=== PATIENT | female | born 1990 | race Two or more races ===

== ENCOUNTER → 2024-06-20 11:05 | Outpatient (CLI) | payer OTHER | END | disposition home or self-care (01) | LOC: PRENATAL 11:05 | PROVIDERS: ATTEND Obstetrics & Gynecology Maternal & Fetal Medicine | DX: O44.00 Complete placenta previa NOS or without hemorrhage, unspecified trimester (principal); Z3A.20 20 weeks gestation of pregnancy ==

== ENCOUNTER 2024-09-14 09:01 | Outpatient (CLI) | payer OTHER | END 2024-09-14 09:02 | disposition home or self-care (01) | LOC: PRENATAL 09:01 | PROVIDERS: ATTEND Obstetrics & Gynecology Maternal & Fetal Medicine | DX: O26.849 Uterine size-date discrepancy, unspecified trimester (principal); O36.8199 Decreased fetal movements, unspecified trimester, other fetus; Z3A.32 32 weeks gestation of pregnancy ==

== ENCOUNTER 2024-10-28 12:59 | Outpatient (CLI) | payer OTHER ==
[~2024-10-28] VITALS: Ht 160 cm; Wt 84.4 kg
[2024-10-28 13:07] VITALS: BP 117/74
[2024-10-28] MEDS ORDERED: PRENATAL TABLE1 EAC4 PO (13:31)
[2024-10-28] MEDS ORDERED: PEPCID20 MG PO (13:32)
[2024-10-28 13:41] LABS: URINE APPEARANCE Clear; URINE BILIRRUBIN Small (NEGATIVE); URINE BLOOD Large; URINE COLOR Dark Yellow; URINE GLUCOSE Negative (NEGATIVE); URINE KETONE 15 (NEGATIVE); URINE LEUKOCYTE Trace; URINE NITRATE Negative; URINE PROTEIN 30 (NEGATIVE)
[2024-10-28 13:44] LABS: HEMATOCRIT 35.4 % (36.0-45.00); MEAN CELL VOLUME 84.5 fL (80.00-100.00); MEAN CORPUSCULAR HEMOGLOBIN 28.6 pg (27.00-32.0); MEAN CORPUSCULAR HGB CONC 33.9 g/dl (32.0-36.0); PLATELET COUNT 202 K/uL (150-450); RED BLOOD COUNT 4.19 M/uL (4.00-6.00); RED CELL DISTRIBUTION WIDTH 14.5 % (11.5-14.5); URINE BACTERIA 588.6 uL (0.0-1933); URINE EPITHELIAL CELLS 12.6 uL (0.0-38.8); URINE RBC 552.2 uL (0.0-20.8); URINE WBC 37.9 uL (0.0-23.2)
[2024-10-28] MEDS ORDERED: RINGERS SOLUTION,LACTATED 1,000 ML IV SCH (14:00)
[2024-10-28 14:04] LABS: INR 0.96; PARTIAL THROMBOPLASTIN TIME 25.6 SECONDS (22.0-34.0); PROTHROMBIN TIME 10.5 SECONDS (9.0-11.5)
[2024-10-28 15:09] VITALS: BP 129/68
[2024-10-28 15:13] LABS: ALBUMIN 2.9 gm/dL (3.4-5.0); BILIRUBIN TOTAL 0.68 mg/dL (0.3-1.2); CREATININE SERUM 0.73 mg/dL (0.55-1.02); GFR 91.81; GLOBULINA 3.3 G/DL (2.4-3.5); POTASSIUM 3.81 mEq/L (3.5-5.1); TOTAL PROTEIN 6.2 gm/dL (6.4-8.2)
[2024-10-28 20:00] VITALS: BP 123/68
[2024-10-28 23:20] VITALS: BP 110/71
[2024-10-29 04:06] VITALS: BP 121/71
[2024-10-29 07:18] VITALS: BP 124/79
[2024-10-29 11:10] VITALS: BP 128/65
[2024-10-29] MEDS ORDERED: ACETAMINOPHEN 500 MG GEL..CAP PO PRN ×2 (12:15→13:30)
== END 2024-10-29 13:27 | disposition home or self-care (01) ==
LOC: LDR 12:59 → OBS/DEL 12:59 → SURG 12:59 → LDR 10-29 09:24 → OB/GYN 10-29 09:24 → OBS/DEL 10-29 13:27 → OB/GYN 10-29 13:27 → SURG 11-09 13:15 → EDSTATUS 11-09 13:15
PROVIDERS: ATTEND Obstetrics & Gynecology
DX: O26.893 Other specified pregnancy related conditions, third trimester (principal); O47.1 False labor at or after 37 completed weeks of gestation; Z3A.38 38 weeks gestation of pregnancy

== ENCOUNTER 2024-11-02 15:53 | Inpatient (IN) | payer OTHER ==
[~2024-11-02] VITALS: Ht 160 cm; Wt 84.4 kg
[~2024-11-02 15:53] MED LIST: PEPCID20 MG PO; PRENATAL TABLE1 EAC4 PO
[2024-11-02 16:17] VITALS: BP 124/66
[2024-11-02 16:59] LABS: HEMATOCRIT 36.9 % (36.0-45.00); HEMOGLOBIN 12.4 g/dL (12.0-15.00); MEAN CELL VOLUME 85.2 fL (80.00-100.00); MEAN CORPUSCULAR HEMOGLOBIN 28.5 pg (27.00-32.0); MEAN CORPUSCULAR HGB CONC 33.5 g/dl (32.0-36.0); PLATELET COUNT 217 K/uL (150-450); RED BLOOD COUNT 4.34 M/uL (4.00-6.00); RED CELL DISTRIBUTION WIDTH 14.5 % (11.5-14.5)
[2024-11-02 17:07] LABS: PH,URINE 5.5 (5.0-8.0); URINE APPEARANCE Clear; URINE BILIRRUBIN Negative (NEGATIVE); URINE BLOOD Negative; URINE COLOR Yellow; URINE GLUCOSE Negative (NEGATIVE); URINE KETONE Negative (NEGATIVE); URINE LEUKOCYTE Negative; URINE NITRATE Negative; URINE PROTEIN Negative (NEGATIVE)
[2024-11-02 17:11] LABS: URINE BACTERIA 834.6 uL (0.0-1933); URINE EPITHELIAL CELLS 12.8 uL (0.0-38.8); URINE RBC 13.5 uL (0.0-20.8); URINE WBC 17.4 uL (0.0-23.2)
[2024-11-02 17:25] LABS: URINE CAST 0.44 uL (0.0-1.40)
[2024-11-02 17:28] LABS: ALBUMIN 2.9 gm/dL (3.4-5.0); BILIRUBIN TOTAL 0.5 mg/dL (0.3-1.2); CALCIUM 8.7 mg/dL (8.5-10.1); CREATININE SERUM 0.72 mg/dL (0.55-1.02); GFR 93.29; GLOBULINA 3.4 G/DL (2.4-3.5); INR 0.99; PARTIAL THROMBOPLASTIN TIME 25.6 SECONDS (22.0-34.0); POTASSIUM 4.01 mEq/L (3.5-5.1); PROTHROMBIN TIME 10.8 SECONDS (9.0-11.5); TOTAL PROTEIN 6.3 gm/dL (6.4-8.2)
[2024-11-02] MEDS ORDERED: RINGERS SOLUTION,LACTATED 1,000 ML IV SCH (18:00)
[2024-11-02 19:40] VITALS: BP 111/70
[2024-11-02] MEDS ORDERED: MISOPROSTOL 25 MCG/4 ML GEL.W.APPL VAG ONE (21:00)
[2024-11-02 23:16] VITALS: BP 120/67
[2024-11-03] MEDS ORDERED: OXYTOCIN 500 ML IV SCH (03:30)
[2024-11-03 03:42] VITALS: BP 103/59
[2024-11-03 07:29] VITALS: BP 137/72
[2024-11-03 11:49] VITALS: BP 113/66
[2024-11-03] MEDS ORDERED: CHLORHEXIDINE GLUCONATE 120 ML BOTTLE TP SCH (15:30)
[2024-11-03] MEDS ORDERED: OXYTOCIN 1,000 ML IV SCH (15:30)
[2024-11-03] MEDS ORDERED: IBUprofen 400 MG TABLET PO PRN (15:30)
[2024-11-03] MEDS ORDERED: ACETAMINOPHEN 500 MG GEL..CAP PO PRN (15:45)
[2024-11-03] MEDS ORDERED: BENZOCAINE/MENTHOL 90 ML BOTTLE TOP SCH (16:00)
[2024-11-03] MEDS ORDERED: DOCUSATE SODIUM 100MG CAP PO SCH (17:00)
[2024-11-03] MEDS ORDERED: HYDROCORTISONE 2.5% 30 GM TUBE RECTAL SCH (18:00)
[2024-11-03 19:10] VITALS: BP 128/80
[2024-11-04 02:58] VITALS: BP 133/78
[2024-11-04 09:51] VITALS: BP 119/73
[2024-11-04 16:30] VITALS: BP 123/78
[2024-11-05] VITALS: BP 117/80
[2024-11-05 07:58] VITALS: BP 122/74
[2024-11-05] MEDS ORDERED: NAPR500T14 PO (11:47)
== END 2024-11-05 14:03 | disposition home or self-care (01) | DRG 807 ==
LOC: LDR 15:53 → OB/GYN 11-03 08:50
PROVIDERS: ADMIT Obstetrics & Gynecology; ATTEND Obstetrics & Gynecology
PROC: 4A1HXCZ Monitoring of Products of Conception, Cardiac Rate, External Approach (ICD-10-PCS; 2024-11-02)
PROC: 10E0XZZ Delivery of Products of Conception, External Approach (ICD-10-PCS; principal; 2024-11-03)
PROC: 0HQ9XZZ Repair Perineum Skin, External Approach (ICD-10-PCS; 2024-11-03)
DX: O70.0 First degree perineal laceration during delivery (principal); O69.81X0 Labor and delivery complicated by cord around neck, without compression, not applicable or unspecified; Z37.0 Single live birth; Z3A.39 39 weeks gestation of pregnancy